=== PATIENT | male | born 2000 | race Caucasian/White ===

== ENCOUNTER 2018-05-03 12:16 | Emergency (ER) | payer OTHER ==
[2018-05-03 12:39] VITALS: BP 126/70
[2018-05-03 12:43] LABS: Influenza A Molecular POSITIVE (Negative)
--- NOTE | 2018-05-03 12:53 | UC ---
FLU HPI - HPI Summary HPI Summary: 18-year-old male presents with onset of fever, chills, general malaise, body aches, nasal congestion, clear nasal drainage, sore throat, and nonproductive cough 4 days ago. Denies ear pain, dysphagia, chest pain, shortness of breath, abdominal pain, nausea, vomiting, or diarrhea. - History of Current Complaint Chief Complaint: UCGeneralIllness Stated Complaint: FEVER,CONGESTION Time Seen by Provider: 05/03/18 12:39 Hx Obtained From: Patient Pain Intensity: 6 - Allergy/Home Medications Allergies/Adverse Reactions: Allergies Allergy/AdvReac Type Severity Reaction Status Date / Time No Known Allergies Allergy Verified 05/03/18 12:35 Home Medications: Home Medications Albuterol HFA INHALER* [Ventolin HFA Inhaler*] 2 puff INH Q6H PRN 05/03/18 [ History Confirmed 05/03/18] Dm/Acetaminophen/Doxylamine [Night Time Multi-Symptom] 2 cap PO BEDTIME [History Confirmed 05/03/18] PMH/Surg Hx/FS Hx/Imm Hx Previously Healthy: Yes - Denies significant PMH - Surgical History Surgical History: None - Family History Known Family History: Positive: Non-Contributory - Social History Occupation: Student Lives: Dormitory/Roommates Alcohol Use: Weekly Substance Use Type: None Smoking Status (MU): Never Smoked Tobacco Review of Systems All Other Systems Reviewed And Are Negative: Yes Constitutional: Positive: Fever, Chills, Fatigue Skin: Negative: Rash Eyes: Negative: Drainage, Eye Redness ENT: Positive: Sore Throat, Nasal Discharge, Sinus Congestion. Negative: Ear Ache, Sinus Pain/Tenderness Respiratory: Positive: Cough. Negative: Shortness Of Breath Cardiovascular: Negative: Palpitations, Chest Pain Gastrointestinal: Negative: Abdominal Pain, Vomiting, Diarrhea, Nausea Genitourinary: Positive: Negative Musculoskeletal: Positive: Myalgia Neurological: Positive: Negative Is Patient Immunocompromised?: No Physical Exam - Summary Physical Exam Summary: GENERAL APPEARANCE: Well developed, well nourished, alert and cooperative, and appears to be in no acute distress. EYES: Conjunctiva clear. No drainage. Vision is grossly intact. EARS: External auditory canals and tympanic membranes clear, hearing grossly intact. NOSE: Mild-moderate nasal congestion. No nasal discharge. THROAT: Mild pharyngeal erythema. No tonsilar inflammation, swelling, exudate, or lesions. Oral cavity normal. Teeth and gingiva in good general condition. NECK: Neck supple, non-tender without lymphadenopathy. CARDIAC: Normal S1 and S2. No S3, S4 or murmurs. Rhythm is regular. There is no peripheral edema, cyanosis or pallor. Extremities are warm and well perfused. Capillary refill is less than 2 seconds. LUNGS: Clear to auscultation without rales, rhonchi, wheezing or diminished breath sounds. ABDOMEN: Positive bowel sounds. Soft, nondistended, nontender. No guarding or rebound. No masses or hepatosplenomegally. MUSKULOSKELETAL: ROM intact to all extremities. No joint erythema or tenderness. Normal muscular development. Normal gait. SKIN: Skin normal color, texture and turgor with no lesions or eruptions. Triage Information Reviewed: Yes Vital Signs: Initial Vital Signs Temp 100.4 F 05/03/18 12:36 Pulse 80 05/03/18 12:36 Resp 20 05/03/18 12:36 BP 126/70 05/03/18 12:36 Pulse Ox 98 05/03/18 12:36 Vital Signs Reviewed: Yes Diagnostics - Laboratory Diagnostic Studies Completed/Ordered: Rapid flu positive for influenza A Flu Course/Dx - Course Course Of Treatment: 18-year-old male presents with onset of fever, chills, general malaise, body aches, nasal congestion, clear nasal drainage, sore throat , and nonproductive cough 4 days ago. Denies ear pain, dysphagia, chest pain, shortness of breath, abdominal pain, nausea, vomiting, or diarrhea. Mildly elevated temperature of 100.4 F. Vital signs stable. Exam reveals a well- developed male in no acute distress with [id number] nasal congestion, mild pharyngeal erythema without tonsillar swelling or exudate, clear breath sounds, and a dry nonproductive cough. Rapid influenza is positive for influenza A. Recommending symptomatic treatment. He is to return here or follow-up with a [facility] in 7 days if symptoms do not improve. Anticipatory guidance and warning symptoms reviewed with patient. Verbalizes understanding and agrees with plan of care. - Differential Dx/Diagnosis Differential Diagnosis/HQI/PQRI: Bronchitis, Influenza, Pneumonia, Upper Respiratory Infection Provider Diagnosis: Influenza A Discharge - Sign-Out/Discharge Documenting (check all that apply): Patient Departure All imaging exams completed and their final reports reviewed: No Studies - Discharge Plan Condition: Stable Disposition: HOME Patient Education Materials: Influenza (ED) Forms: *School Release Referrals: No Primary Care Phys,NOPCP [Primary Care Provider] - Additional Instructions: Your flu test in the clinic today was positive for influenza A. Flu is a viral infection and does not respond to antibiotics. Flu typically runs its course over 7-10 days. Drink plenty of fluids to avoid dehydration especially if you are running any fever. Use a saline rinse kit such as Neti Pot or NeilMed at least twice a day to help thin secretions and promote drainage of the sinuses. Use [id number] Sudafed for congestion. Take over the counter acetaminophen (Tylenol) or ibuprofen (Advil, Motrin) according to directions as needed for pain or fever. Use salt water gargles several times a day if you have a sore throat. You may also use Chloraseptic spray or Cepacol lonzenges according to directions which contain a numbing medication and can provide some temporary relief from your sore throat. Return here or follow up at the [facility] in 7 days if symptoms persist. Seek immediate medical attention in the emergency room if you have fever greater than 100.5 F despite taking acetaminophen or ibuprofen, have chest pain , difficulty breathing, are unable to swallow, or have any worsening of symptoms. - Billing Disposition and Condition Condition: STABLE Disposition: Home
== END 2018-05-03 13:02 | disposition home or self-care (01) ==
LOC: UCCORT 12:16
DX: J10.1 Influenza due to other identified influenza virus with other respiratory manifestations (principal)
CPT/HCPCS: 99201; G0463

== ENCOUNTER 2018-12-12 15:31 | Emergency (ER) | payer OTHER ==
[2018-12-12 16:13] VITALS: BP 133/52
--- NOTE | 2018-12-12 16:30 | UC ---
General HPI - HPI Summary HPI Summary: while playing flag football yesterday, pt was struck in the forehead by a teammates knee. he noted a headache shortly after and later the same day developed some nausea. this am while using a computer his headache and nausea felt worse plus he was light sensitive. he denies visual changes, neck/back pain, memory issues as well as any local numbness or weakness. he did stop play immediately after the incident. he has a hx of migraines but this felt different. it is not a worst headache. - History of Current Complaint Chief Complaint: UCGeneralIllness Stated Complaint: HEADACHE, NAUSEA Time Seen by Provider: 12/12/18 15:57 Hx Obtained From: Patient Pain Intensity: 5 Associated Signs & Symptoms: Negative: Dizziness, Syncope, Vomiting - Allergy/Home Medications Allergies/Adverse Reactions: Allergies Allergy/AdvReac Type Severity Reaction Status Date / Time No Known Allergies Allergy Verified 12/12/18 15:59 PMH/Surg Hx/FS Hx/Imm Hx Neurological History: Migraine - Surgical History Surgical History: None - Family History Known Family History: Positive: Non-Contributory - Social History Occupation: Student Alcohol Use: Weekly Substance Use Type: None Smoking Status (MU): Never Smoked Tobacco Review of Systems All Other Systems Reviewed And Are Negative: No Constitutional: Negative: Fever Eyes: Positive: Photophobia. Negative: Blurred Vision, Diplopia, Drainage, Eye Redness ENT: Negative: Epistaxis Musculoskeletal: Negative: Decreased ROM Neurological: Negative: Weakness, Paresthesia, Numbness Physical Exam Triage Information Reviewed: Yes Appearance: Well-Appearing Vital Signs: Initial Vital Signs Temp 98.4 F 12/12/18 15:59 Pulse 60 12/12/18 15:59 Resp 16 12/12/18 15:59 BP 133/52 12/12/18 15:59 Pulse Ox 100 12/12/18 15:59 Vital Signs Reviewed: Yes Eyes: Positive: Conjunctiva Clear, Other: - PERRL, EOMI.. Negative: Discharge ENT: Positive: Pharynx normal, TMs normal, Other - No epistaxis.. Negative: Nasal congestion, Nasal drainage Neck: Positive: Supple, Nontender, No Lymphadenopathy, Other: - c-spine is non tender. Respiratory: Positive: Lungs clear, Normal breath sounds Cardiovascular: Positive: RRR, No Murmur Abdomen Description: Positive: Nontender Bowel Sounds: Positive: Present Musculoskeletal: Positive: Other: - No cranial or facial bone instability or tenderness. Back without deformity or tenderness. Neurological: Positive: Other: - A&Ox3. CN 2-12 intact. 5/5 strength, 2+ reflexes, sensation intactx4. Negative rhomberg. Negative pronator drift. Performs rapid alternating moves with ease. steady gait. No signs of difficulty with recall. Psychological: Positive: Age Appropriate Behavior Skin Exam: Normal Skin: Positive: Rashes Course/Dx - Differential Dx - Multi-Symptom Differential Diagnoses: Other - will remove from sport/gym and have pt f/u with sports medicine or the [facility]. - Diagnoses Provider Diagnosis: Head injury Discharge ED - Sign-Out/Discharge Documenting (check all that apply): Patient Departure All imaging exams completed and their final reports reviewed: No Studies - Discharge Plan Condition: Stable Disposition: HOME Patient Education Materials: Head Injury (ED) Forms: *School Release Referrals: [facility] [Provider Group] - As Soon As Possible [facility] [Outside] Additional Instructions: FOR SPORTS MEDICINE, YOU MAY ASK TO BE SEEN AT THE [facility]. OR YOU MAY FOLLOW UP WITH THE [facility] TOMORROW - Billing Disposition and Condition Condition: STABLE Disposition: Home
== END 2018-12-12 16:44 | disposition home or self-care (01) ==
LOC: UCCORT 15:31
DX: S09.90XA Unspecified injury of head, initial encounter (principal); W50.0XXA Accidental hit or strike by another person, initial encounter; Y93.62 Activity, american flag or touch football; Y92.9 Unspecified place or not applicable
CPT/HCPCS: 99211; G0463

== ENCOUNTER 2019-01-08 18:13 | Emergency (ER) | payer OTHER ==
[2019-01-08 18:23] VITALS: BP 138/68
--- NOTE | 2019-01-08 18:31 | UC ---
Upper Extremity HPI - HPI Summary HPI Summary: Pt reports R elbow swelling with little to no pain that startedapprox 1/2 hr ago. he is able to move it without pain and denies fever, dysuria or vision changes. Of note pt does lift weights but denies an event that hurt his elbow. - History of Current Complaint Chief Complaint: UCUpperExtremity Stated Complaint: ELBOW SWOLLEN/INJURY Time Seen by Provider: 01/08/19 18:26 Hx Obtained From: Patient Pain Intensity: 5 Pain Scale Used: 0-10 Numeric Aggravating Factor(s): Other - touching it in a weird way Alleviating Factor(s): Nothing - Allergies/Home Medications Allergies/Adverse Reactions: Allergies Allergy/AdvReac Type Severity Reaction Status Date / Time No Known Allergies Allergy Verified 01/08/19 18:23 PMH/Surg Hx/FS Hx/Imm Hx - Additional Past Medical History Additional PMH: no chronic conditions. Previously Healthy: Yes - Surgical History Surgical History: None - Family History Known Family History: Positive: Non-Contributory - Social History Alcohol Use: Weekly Substance Use Type: None Smoking Status (MU): Never Smoked Tobacco Review of Systems All Other Systems Reviewed And Are Negative: Yes Constitutional: Negative: Fever Skin: Negative: Rash, Bruising Eyes: Positive: Negative Genitourinary: Negative: Dysuria Musculoskeletal: Positive: Arthralgia, Edema. Negative: Decreased ROM Physical Exam Triage Information Reviewed: Yes Appearance: Well-Appearing Vital Signs: Initial Vital Signs Temp 98.3 F 01/08/19 18:21 Pulse 74 01/08/19 18:21 Resp 16 01/08/19 18:21 BP 138/68 01/08/19 18:21 Pulse Ox 99 01/08/19 18:21 Vital Signs Reviewed: Yes Neck exam: Normal Respiratory Exam: Normal Musculoskeletal: Positive: Strength Intact, ROM Intact, Edema @ - R olecranon, Other: - minimal tenderness at R elbow Neurological: Positive: Alert Skin: Negative: Other - no redness at R elbow Diagnostics - Radiology No standard instances Radiology Interpretation Completed By: ED Physician Summary of Radiographic Findings: No obvious fracture or abnormality Upper Extremity Course/Dx - Course Course Of Treatment: R olecranon bursitis, w/ sudden swelling and little to no pain. Will r/o STI related joint issues. nsaids for inflammation. no change in ROM but have asked him to see Ortho should anything worsen. - Differential Dx/Diagnosis Differential Diagnosis/HQI/PQRI: Bursitis, Contusion, Strain, Sprain Provider Diagnosis: Olecranon bursitis Discharge ED - Sign-Out/Discharge Documenting (check all that apply): Patient Departure All imaging exams completed and their final reports reviewed: Yes - Discharge Plan Condition: Good Disposition: HOME Prescriptions: Ibuprofen [Ibu] 600 mg PO TID 10 Days #30 tablet Patient Education Materials: Elbow Bursitis (ED) Referrals: Toma Brower MD [Medical Doctor] - Additional Instructions: If worsening please return. I've attached an Orthopedic contact in case you need them. Don't forget to vote. - Billing Disposition and Condition Condition: GOOD Disposition: Home
[2019-01-10 12:29] LABS: Chlamydia trachomatis NAA Negative (Negative); Neisseria gonorrhoeae (GC) NAA Negative (Negative)
== END 2019-01-08 19:15 | disposition home or self-care (01) ==
LOC: UCCORT 18:13
DX: M70.21 Olecranon bursitis, right elbow (principal)
CPT/HCPCS: 87491; 87591; 99212; G0463

== ENCOUNTER 2019-05-11 11:27 | Emergency (ER) | payer OTHER ==
[2019-05-11 12:11] VITALS: BP 129/79
== END 2019-05-11 13:06 | disposition left against medical advice (07) ==
LOC: UCCORT 11:27
DX: Z53.21 Procedure and treatment not carried out due to patient leaving prior to being seen by health care provider (principal)